=== PATIENT | male | born 1955 | race Caucasian/White ===

== ENCOUNTER 2016-07-21 21:40 | Emergency (ER) | payer OTHER ==
--- NOTE | 2016-07-21 23:42 | DIAGNOSTIC IMAGING REPORT ---
PROCEDURE: XR CHEST 2 VIEW INDICATION: FEVER TECHNIQUE: PA and lateral views. COMPARISON: None. FINDINGS: Allowing for suboptimal inspiration, there is mild volume loss at the left lung base. Lungs are otherwise clear. Heart and mediastinum are normal. Thorax is normal. IMPRESSION: 1. There is mild volume loss at the left lung base (may be a reflection of suboptimal inspiration). 2. Otherwise negative chest. 3. Findings discussed with Dr. Brent Schneider.
--- NOTE | 2016-07-21 23:44 | DIAGNOSTIC IMAGING REPORT ---
PROCEDURE: XR SOFT TISSUE NECK INDICATION: DIFFICULTY SWALLOWING TECHNIQUE: AP and lateral views. COMPARISON: None. FINDINGS: Findings suggest mild to moderate soft tissue edema of supraglottic structures with mild indistinctness of the laryngeal ventricle. Epiglottis is normal. Nasopharynx appears normal. There are mild to moderate degenerative changes of the lower cervical spine IMPRESSION: 1. Findings suggest mild to moderate soft tissue edema of the supraglottic structures. Consider supraglottitis. 2. Findings discussed with Dr. Brent Schneider.
--- NOTE | 2016-07-22 03:15 | ED NURSING NOTES ---
Clinical Report - Nurses [facility] [address] [place] [address] 07/21/2016 21:42 Patient: MELINA MANCILLA TRIAGE Triage time 21:51. Acuity: LEVEL 3. Chief Complaint: ABDOMINAL PAIN, NAUSEA and VOMITING. --21:59 Aaron Mabry R.N. 21:51 07/21/16. BP: 173/90. HR: 75. RR: 15. O2 saturation: 99%. Temp: 98.5 F. Pain level now 10/16. --21:59 Aaron Mabry R.N. Weight: 90.7 kg stated. Height/Length: 74 inches Per Patient. BMI: 25.7. --21:56 Aaron Mabry R.N. Medications Zofran Oral. --21:53 Aaron Mabry R.N. Medication/allergy information source: the patient. --21:59 Aaron Mabry R.N. Allergies No Known Drug Allergy. --21:53 Aaron Mabry R.N. History Arrived by private vehicle. Historian: patient. Accompanied by family. Primary physician (Lida Dhaliwal). ( Pt was seen a few days ago at the clinic for the same symptoms. Pt was suppose to have a CT done today, but missed the appt due to the far drive. Pt is having abdominal pain with n/v. Pt had a sore throat, but was negative for strep.). He has had nausea and vomiting. ( last bm was yesterday). 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 PAST MEDICAL HX: Immunizations: status is unknown. SOCIAL HX: Never smoker. No alcohol use or drug use. --21:59 Aaron Mabry R.N. PROBLEMS: Nephrolithiasis. Gallstone(s). Hypertension. --21:55 Aaron Mabry R.N. Interventions ID band on patient. To treatment room. --21:59 Aaron Mabry R.N. PHYSICAL ASSESSMENT ( Pt has been seen in the past for his abdomen. His pcp has ordered for a colonoscopy, but the pt never goes. Pt has n/v every day, per girlfriend.). GENERAL / NEURO / PSYCH: Alert. Oriented X 4. Appears in no acute distress. HEENT: Mucous membranes are pink. RESPIRATORY: Respirations not labored. Breath sounds within normal limits. CVS: Normal sinus rhythm noted. Capillary refill less than 2 seconds. GI / : The patient has had nausea. Emesis noted. ( last bm was yesterday). SKIN: Skin is warm and dry. --22:00 Aaron Mabry R.N. NURSING PROGRESS NOTES Pulse oximeter and NIBP monitor placed on patient. Patient gowned. Head of bed elevated. Two patient identifiers checked. Call light placed in reach. Side rails up x 1. Bed placed in lowest position. --22:00 Aaron Mabry R.N. 22:32. Flu swab obtained by psychiatric technician via nasal swab. Checked patient name and birthdate: patient confirmed. Throat swab obtained for rapid strep; labeled in the presence of the patient and sent to lab. --22:32 Eden Bethea, ER Tech1 22:33 07/21/2016 Site #1 started via IV in the right antecubital space with an 20g angiocath, with aseptic technique and good blood return; one attempt. Blood drawn: rainbow set. Labeled in the presence of the patient and sent to the lab. Saline lock flushed with 10 mL saline. --22:33 Aaron Mabry R.N. 22:34 07/21/2016 Zofran (Ondansetron HCl) IVP 4 mg given over 1 minute(s) via site #1. Allergies verified and confirmed 5 rights. IV patency established. IV site checked: no pain, redness, or swelling. IV flushed thoroughly pre- and post-medication administration. IVP given by RN. --22:34 Aaron Mabry R.N. 22:34 07/21/2016 Started bag #1 1000 mL IV Fluids IV NS (Saline); at 1000 mL/hr over 1 hour(s) via site #1 via IV pump. Allergies verified and confirmed 5 rights. IV patency established. IV site checked: no pain, redness, or swelling. IV flushed thoroughly pre- and post-medication administration. --22:34 Aaron Mabry R.N. 23:05 07/21/16. BP: 164/95. HR: 75. RR: 13. O2 saturation: 98%. Pain level now 0/10. --23:06 Aaron Mabry R.N. ( pt is laying in bed with a warm blanket and gf at bedside. Pt shows no signs of distress and has eyes closed.). --23:06 Aaron Mabry R.N. 23:54 07/21/2016 Started 2 gm of Rocephin (CefTRIAXone Sodium) IVPB; at 150 mL/hr over 30 minute(s) via site #1 via IV pump. Allergies verified and confirmed 5 rights. IV patency established. IV site checked: no pain, redness, or swelling. IV flushed thoroughly pre- and post-medication administration. --23:54 Aaron Mabry R.N. 23:54 07/21/2016 SOLU-MEDROL (MethylPREDNISolone Sodium Succ) IVP 125 mg given over 1 minute(s) via site #1. Allergies verified and confirmed 5 rights. IV patency established. IV site checked: no pain, redness, or swelling. IV flushed thoroughly pre- and post-medication administration. IVP given by RN. --23:54 Aaron Mabry R.N. 23:56 07/21/16. BP: 159/95. HR: 79. RR: 15. O2 saturation: 98%. Pain level now 0/10. --23:58 Aaron Mabry R.N. ( The gf was upset at the MD, because the pt would not answer questions. The pt stated his throat hurt, but was able to speak. Pt can speak in logical clear speech and has been negative for strep.). --23:58 Aaron Mabry R.N. 00:01 07/22/2016 Tylenol (Acetaminophen) PO 1000 mg given. Allergies verified and confirmed 5 rights. --00:01 Aaron Mabry R.N. 00:08 07/22/2016 Rocephin IVPB Discontinued: bag #1 infused. Total amount infused: 50 mL. IV patency established. IV site checked: no pain, redness, or swelling. IV flushed thoroughly. --00:08 Catherine Walsh R.N. 01:59 07/22/16. BP: 120/53. HR: 87. RR: 15. O2 saturation: 98%. Pain level now 0/10. --02:00 Aaron Mabry R.N. ( Pt is feeling better and is able to talk now. GF is at bedside. VS were retaken and improved.). --02:02 Aaron Mabry R.N. 01:56 07/22/2016 IV Fluids IV NS Discontinued: bag #1 completed. Total amount infused: 1000 mL. IV patency established. IV site checked: no pain, redness, or swelling. IV flushed thoroughly. --02:21 Aaron Mabry R.N. Patient transported to CT. (02:25). --02:25 Aaron Mabry R.N. Patient returned from CT. --02:47 Aaron Mabry R.N. DISPOSITION / DISCHARGE 03:30 07/22/2016 Site #1 removed upon discharge. Catheter intact. Bandaid applied. --03:30 Aaron Mabry R.N. Departure time: 03:31. Condition at departure: improved. No learning barriers present. Reviewed warnings. Reviewed medication(s). Treatments reviewed. Patient verbalized understanding. Written instructions provided in Monegasque. The patient was discharged by the physician. He was discharged home and accompanied by hand engraver. He left the Emergency Department ambulatory and via private vehicle. Substitute School Nurse driving. --03:32 Aaron Mabry R.N. 03:28 07/22/16. BP: 130/68. HR: 78. RR: 15. O2 saturation: 99%. Temp: 98.1 F. Pain level now 0/10. --03:32 Aaron Mabry R.N. Locked/Released at 07/22/2016 3:32 by Aaron Mabry R.N.
--- NOTE | 2016-07-22 03:15 | ED CLINICAL REPORT ---
Clinical Report - Physicians/Mid Levels [facility] [address] [place] [address] 07/21/2016 21:42 Patient: MELINA MANCILLA Time Seen: 21:49 Jul 21 2016. Arrived- By private vehicle. Historian- patient. Evaluation limited Pt does not participate and all questions answered by girlfriend. History limited by vague historian. Physical Exam limited by poor cooperation. CPT: ER phys charges level 4 (#[id number]). HISTORY OF PRESENT ILLNESS Chief Complaint: FEVER, CHILLS, SORE THROAT, COUGH, NAUSEA, VOMITING and ABDOMINAL PAIN Multiple complaints with no time frame . 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 He been seen earlier yesterday for the same complaint and had a strep screen done that was negative. He was told he had a viral illness. Since then his throat is becoming more sore and concerned him. In addition he states that he reported dark urine to the PCP and a UA showed some blood in the urine so a CT scan was set up. This was done because the patient has history of stones Patient notes abdominal pain nausea and vomiting. This is ongoing and chronic due to H. pylori. This is not the reason that he is here today but he reports 6-12 episodes of vomiting today with poor by mouth intake. indicates this is due to Zofran that he was prescribed that is not the sublingual. He is worried he may be dehydrated. and is still present. At its maximum, severity described as moderate. When seen in the E.D., severity described as moderate. Modifying factors- worsened by swallowing. Not relieved by anything. The patient has had fatigue and weakness. Similar symptoms previously: None. Recent medical care: The patient was seen recently at another facility in the office (yesterday). REVIEW OF SYSTEMS The patient has had fever, a sore throat, cough and headache and chills. No sinus drainage, nasal congestion, difficulty breathing, chest pain or diarrhea. No black stools, bloody stools, difficulty with urination, skin rash or back pain. No calf pain or blackouts. The patient has had abdominal pain (chronically). He has had nausea (chronically). He has had vomiting (chronically). All systems otherwise negative, except as recorded above. PAST HISTORY Nephrolithiasis. Gallstone(s). Hypertension. Medications: Zofran Oral. Allergies: No Known Drug Allergy. SOCIAL HISTORY Never smoker. No alcohol use or drug use. ADDITIONAL NOTES The nursing notes have been reviewed. PHYSICAL EXAM Vital Signs: 07/21/2016 21:51 BP: 173/90. HR: 75. RR: 15. O2 saturation: 99%. Temp: 98.5 F. Appearance: Alert. No acute distress. Eyes: Pupils equal, round and reactive to light. Eyes normal inspection. ENT: Ears normal. Nose normal. Pharynx normal. No pharyngeal erythema or tonsillar exudate. Neck: Normal inspection. Neck supple. No meningeal signs, carotid bruit or lymphadenopathy. CVS: Normal heart rate and rhythm. Heart sounds normal. Pulses normal. Respiratory: No respiratory distress. Respiratory distress (no stridor.). Breath sounds normal. Chest nontender. No wheezes. Abdomen: No visible injury. Soft and nontender. Back: Normal inspection. Skin: Skin warm. Normal skin color. No rash. Extremities: Extremities exhibit normal ROM. No lower extremity edema. Neuro: Oriented X 3. No motor deficit. No sensory deficit. LABS, X-RAYS, AND EKG Chest X-ray: (Left basilar atx vs small infiltrate.). Views: PA and lateral. Technique: good. The X-rays were independently viewed by me and interpreted contemporaneously by me. Laboratory Tests: CBC w Diff: (KAI: 07/21/2016 22:30) ( MsgRcvd 07/21/2016 23:02) Final results Test Result Flag Units (Reference) WHITE BLOOD COUNT 12.2 H K/uL (4.5-11.5) RED BLOOD COUNT 5.13 M/uL (4.50-5.90) HEMOGLOBIN 15.4 gm/dL (13.5-17.5) HEMATOCRIT 45.1 % (41.0-53.0) MEAN CELL VOLUME 88 fL (80-100) MEAN CORPUSCULAR HGB 30 pg (26-34) MEAN CORPUSCULAR HGB CONC 34 g/dL (31-37) RED CELL DISTRIBUTION WIDTH 13.7 % (11.6-14.8) PLATELET COUNT 187 K/uL (150-400) NEUTROPHIL % 92.3 H % (50-75) LYMPH % 3.1 L % (25-40) MONO % 4.4 % (3-14) EOSINOPHIL % 0 % (0-4) BASOPHIL % 0.2 % (0-2) [id number]: (KAI: 07/21/2016 22:30) ( MsgRcvd 07/21/2016 23:28) Final results Test Result Flag Units (Reference) PROCALCITONIN <0.5 ng/mL (0-0.5) PCT Concentration: Interpretation : Risk/option for action PCT <=0.5 ng/mL : Systemic : Low risk forinfection(sepsis): progression to severeis not likely. : systemic infection.Local bacterial : CAUTION-PCT levelsinfection is : below 0.5 ng/mL do notpossible. : exclude an infection,because localizedinfections (withoutsystemic signs) may beassociated with suchlow levels. If PCT ismeasured very earlyafter a bacterialchallenge (usually <6hours), these valuesmay still be low. Inthis case PCT shouldbe re-assessed 6-24hours later. PCT >0.5 and : Systemic infection: Moderate risk for<= 2 ng/mL : (sepsis) is : progression to severepossible, but : systemic infection.other conditions : The patient should beare known to : closely monitoredelevate PCT. : both clinically andby re-assessing PCTwithin 6-24 hours. PCT > 2 ng/mL : Systemic infection: High risk for(sepsis) is likely: progression to severeunless other : systemic infection.causes are known. : PCT >= 10 ng/mL : Important systemic: High likelihood ofinflammatory : severe sepsis orresponse, almost : septic shock.exclusively due to:severe bacterial :sepsis or septic :shock. : CMP: (KAI: 07/21/2016 22:30) ( MsgRcvd 07/21/2016 23:20) Final results Test Result Flag Units (Reference) GLUCOSE 121 H mg/dL (70-110) BUN 10 mg/dL (7-18) CREATININE 1.2 mg/dL (0.6-1.3) Estimated GFR >60 mL/min Estimated GFR- >60 mL/min Note: Persistent reduction over 3 months in eGFR<60 mL/min/1.73 m2 defines CKD. Patients with eGFR values>=60 mL/min/1.73 m2 may also have CKD if evidence ofpersistent proteinuria. Additional information may be foundat www.kidney.org. SODIUM 141 mmol/L (136-145) POTASSIUM 3.9 mmol/L (3.5-5.1) CHLORIDE 103 mmol/L (98-107) CARBON DIOXIDE 28 mmol/L (21-32) CALCIUM 8.6 mg/dL (8.5-10.1) TOTAL PROTEIN 7.0 g/dL (6.4-8.2) ALBUMIN 3.4 g/dL (3.3-5.0) BILIRUBIN, TOTAL 1.0 mg/dL (0.0-1.0) ALKALINE PHOSPHATASE 139 H U/L (46-116) AST (SGOT) 45 H U/L (15-37) ALT (SGPT) 64 U/L (12-78) Culture, Strep Screen: (KAI: 07/21/2016 22:22) ( MsgRcvd 07/21/2016 22:51) Final results Test Result Flag Units (Reference) RAPID STREP SCREEN - THROAT DATE: 07/21/16 NEGATIVE SCREEN: RAPID STREP SCREEN NEGATIVE; CONFIRMATION TO FOLLOW Rapid Influenza Screen: (KAI: 07/21/2016 22:22) ( MsgRcvd 07/21/2016 22:53) Final results SPECIMEN DESCRIPTION: SWAB Test Result Flag Units (Reference) RAPID INFLUENZA SCREEN DATE: 07/21/16 INFLUENZA A: NEGATIVE SCREEN FOR INFLUENZA A INFLUENZA B: NEGATIVE SCREEN FOR INFLUENZA B . Note - Tests: (CT soft tissue neck: Mild inflammation at base of epiglottis.). PROGRESS AND PROCEDURES Course of Care: IV NS Rocephin 2g IV Solumedrol 125 mg IV Zofrn 4 mg IV Patient is stable. Symptoms better. Patient/family counseled. Disposition: Discharged. Condition: stable and improved. CLINICAL IMPRESSION Acute pharyngitis. INSTRUCTIONS Warnings: Further evaluation is necessary. GENERAL WARNINGS: Return or contact your physician immediately if your condition worsens or changes unexpectedly, if not improving as expected, or if other problems arise. Your Current Medications: CONTINUE TAKING THE FOLLOWING MEDICATIONS: Zofran Oral. Prescription Medications: Zofran (orally disintegrating tablets) 4 mg: take 1 orally every 6 hours as needed for nausea. Dispense fifteen (15). No refill. Hydrocodone/APAP 5mg/325mg: take 1 to 2 orally every 6 hours as needed for pain. Dispense fifteen (15). No refills. Ceftin 500 mg: take 1 tab orally every 12 hours for 10 days. No refills. Substitution is permissible. Prednisone 50 mg a day po for 3 days. Follow-up: Follow up with your doctor in two days. Call for an appointment. Understanding of the discharge instructions verbalized by patient. Discharge instructions reviewed with and understanding was verbalized by occupational therapy co director. (Electronically signed by Brent Schneider MD 07/22/2016 8:40)
--- NOTE | 2016-07-22 03:15 | ED ORDER SUMMARY ---
..... Patient: MELINA MANCILLA OrderSheet [facility] VisitID: [id number] [address] [place] [address] 61y, M Registration Date/Time: 07/21/2016 ORDER SHEET Weight: 90.7 kg (stated) Allergies: No Known Drug Allergy GENERAL ORDERS: Soft Tissue Neck Urgent (22:22 07/21/2016 Art DELGADO) (Ack 22:25 AMcQuoid ER Tech1) (22:49 RFay) Chest 2V Urgent (22:22 07/21/2016 Art DELGADO) (Ack 22:25 AMcQuoid ER Tech1) (22:49 RFay) CBC w Diff Urgent (22:22 07/21/2016 Art DELGADO) (Ack 22:25 AMcQuoid ER Tech1) (22:33 TLewis R.N.) CMP Urgent (22:22 07/21/2016 Art DELGADO) (Ack 22:25 AMcQuoid ER Tech1) (22:33 TLewis R.N.) PCT (Procalcitonin) Urgent (22:22 07/21/2016 Art DELGADO) (Ack 22:25 AMcQuoid ER Tech1) (22:33 TLewis R.N.) Rapid Influenza Screen (Nasal Pharyngeal) (swab) Urgent (22:23 07/21/2016 Art DELGADO) (Ack 22:25 AMcQuoid ER Tech1) (22:32 AMcQuoid ER Tech1) Culture, Strep Screen Urgent (22:23 07/21/2016 Art DELGADO) (Ack 22:25 AMcQuoid ER Tech1) (22:32 AMcQuoid ER Tech1) UA-Culture if indicated Urgent (23:43 07/21/2016 Art DELGADO) (23:46 AMcQuoid ER Tech1) CT Soft Tissue Neck w Cont (No) (N/A) Urgent (02:19 07/22/2016 Art DELGADO) (2:21 TLewis R.N.) MEDICATION ORDERS: Tylenol PO 1,000 mg (NOW) (23:57 07/21/2016 Art DELGADO) (0:01 TLewis R.N.) IV FLUIDS: IV NS : initial bolus 1000 mL (1000 mL/hr), then none - for X1 (NOW); Routine (22:22 07/21/2016 Art DELGADO) (22:34 Josias CostaNNicole) Zofran IV 4 mg (NOW) (22:22 07/21/2016 Art DELGADO) (22:34 Josias CostaN.) Solu-MEDROL IV 125 mg (NOW) (23:44 07/21/2016 Art DELGADO) (23:54 Josias R.N.) Rocephin IV 2 gm/50mL (NOW) (23:44 07/21/2016 Art DELGADO) (23:54 Josias R.N.) ORDER SHEET NOTES: [Electronically signed by Aaron Mabry R.N. (03:32 07/22/2016)] [Electronically signed by Brent Schneider MD (08:40 07/22/2016)] [Electronically locked/signed by Aaron Mabry R.N. (03:32 07/22/2016)]
--- NOTE | 2016-07-22 03:15 | ED ORDER SUMMARY ---
..... Patient: MELINA MANCILLA OrderSheet [facility] VisitID: [id number] [address] [place] [address] 61y, M Registration Date/Time: 07/21/2016 ORDER SHEET Weight: 90.7 kg (stated) Allergies: No Known Drug Allergy GENERAL ORDERS: Soft Tissue Neck Urgent (22:22 07/21/2016 Art DELGADO) (Ack 22:25 AMcQuoid ER Tech1) (22:49 RFay) Chest 2V Urgent (22:22 07/21/2016 Art DELGADO) (Ack 22:25 AMcQuoid ER Tech1) (22:49 RFay) CBC w Diff Urgent (22:22 07/21/2016 Art DELGADO) (Ack 22:25 AMcQuoid ER Tech1) (22:33 TLewis R.N.) CMP Urgent (22:22 07/21/2016 Art DELGADO) (Ack 22:25 AMcQuoid ER Tech1) (22:33 TLewis R.N.) PCT (Procalcitonin) Urgent (22:22 07/21/2016 Art DELGADO) (Ack 22:25 AMcQuoid ER Tech1) (22:33 TLewis R.N.) Rapid Influenza Screen (Nasal Pharyngeal) (swab) Urgent (22:23 07/21/2016 Art DELGADO) (Ack 22:25 AMcQuoid ER Tech1) (22:32 AMcQuoid ER Tech1) Culture, Strep Screen Urgent (22:23 07/21/2016 Art DELGADO) (Ack 22:25 AMcQuoid ER Tech1) (22:32 AMcQuoid ER Tech1) UA-Culture if indicated Urgent (23:43 07/21/2016 Art DELGADO) (23:46 AMcQuoid ER Tech1) CT Soft Tissue Neck w Cont (No) (N/A) Urgent (02:19 07/22/2016 Art DELGADO) (2:21 TLewis R.N.) MEDICATION ORDERS: Tylenol PO 1,000 mg (NOW) (23:57 07/21/2016 Art DELGADO) (0:01 TLewis R.N.) IV FLUIDS: IV NS : initial bolus 1000 mL (1000 mL/hr), then none - for X1 (NOW); Routine (22:22 07/21/2016 Art DELGADO) (22:34 Josias CostaNNicole) Zofran IV 4 mg (NOW) (22:22 07/21/2016 Art DELGADO) (22:34 oJsias CostaN.) Solu-MEDROL IV 125 mg (NOW) (23:44 07/21/2016 Art DEGLADO) (23:54 Josias R.N.) Rocephin IV 2 gm/50mL (NOW) (23:44 07/21/2016 Art DELGADO) (23:54 Josias R.N.) ORDER SHEET NOTES: [Electronically signed by Aaron Mabry R.N. (03:32 07/22/2016)] [Electronically signed by Brent Schneider MD (08:40 07/22/2016)] [Electronically locked/signed by Aaron Mabry R.N. (03:32 07/22/2016)]
--- NOTE | 2016-07-22 03:15 | ED NURSING NOTES ---
Clinical Report - Nurses [facility] [address] [place] [address] 07/21/2016 21:42 Patient: MELINA MANCILLA TRIAGE Triage time 21:51. Acuity: LEVEL 3. Chief Complaint: ABDOMINAL PAIN, NAUSEA and VOMITING. --21:59 Aaron Mabry R.N. 21:51 07/21/16. BP: 173/90. HR: 75. RR: 15. O2 saturation: 99%. Temp: 98.5 F. Pain level now 10/16. --21:59 Aaron Mabry R.N. Weight: 90.7 kg stated. Height/Length: 74 inches Per Patient. BMI: 25.7. --21:56 Aaron Mabry R.N. Medications Zofran Oral. --21:53 Aaron Mabry R.N. Medication/allergy information source: the patient. --21:59 Aaron Mabry R.N. Allergies No Known Drug Allergy. --21:53 Aaron Mabry R.N. History Arrived by private vehicle. Historian: patient. Accompanied by family. Primary physician (Lida Dhaliwal). ( Pt was seen a few days ago at the clinic for the same symptoms. Pt was suppose to have a CT done today, but missed the appt due to the far drive. Pt is having abdominal pain with n/v. Pt had a sore throat, but was negative for strep.). He has had nausea and vomiting. ( last bm was yesterday). Treatment NUTRITION TECH: None. PAST MEDICAL HX: Immunizations: status is unknown. SOCIAL HX: Never smoker. No alcohol use or drug use. --21:59 Aaron Mabry R.N. PROBLEMS: Nephrolithiasis. Gallstone(s). Hypertension. --21:55 Aaron Mabry R.N. Interventions ID band on patient. To treatment room. --21:59 Aaron Mabry R.N. PHYSICAL ASSESSMENT ( Pt has been seen in the past for his abdomen. His pcp has ordered for a colonoscopy, but the pt never goes. Pt has n/v every day, per girlfriend.). GENERAL / NEURO / PSYCH: Alert. Oriented X 4. Appears in no acute distress. HEENT: Mucous membranes are pink. RESPIRATORY: Respirations not labored. Breath sounds within normal limits. CVS: Normal sinus rhythm noted. Capillary refill less than 2 seconds. GI / : The patient has had nausea. Emesis noted. ( last bm was yesterday). SKIN: Skin is warm and dry. --22:00 Aaron Mabry R.N. NURSING PROGRESS NOTES Pulse oximeter and NIBP monitor placed on patient. Patient gowned. Head of bed elevated. Two patient identifiers checked. Call light placed in reach. Side rails up x 1. Bed placed in lowest position. --22:00 Aaron Mabry R.N. 22:32. Flu swab obtained by biochemistry technician via nasal swab. Checked patient name and birthdate: patient confirmed. Throat swab obtained for rapid strep; labeled in the presence of the patient and sent to lab. --22:32 Eden Bethea, ER Tech1 22:33 07/21/2016 Site #1 started via IV in the right antecubital space with an 20g angiocath, with aseptic technique and good blood return; one attempt. Blood drawn: rainbow set. Labeled in the presence of the patient and sent to the lab. Saline lock flushed with 10 mL saline. --22:33 Aaron Mabry R.N. 22:34 07/21/2016 Zofran (Ondansetron HCl) IVP 4 mg given over 1 minute(s) via site #1. Allergies verified and confirmed 5 rights. IV patency established. IV site checked: no pain, redness, or swelling. IV flushed thoroughly pre- and post-medication administration. IVP given by RN. --22:34 Aaron Mabry R.N. 22:34 07/21/2016 Started bag #1 1000 mL IV Fluids IV NS (Saline); at 1000 mL/hr over 1 hour(s) via site #1 via IV pump. Allergies verified and confirmed 5 rights. IV patency established. IV site checked: no pain, redness, or swelling. IV flushed thoroughly pre- and post-medication administration. --22:34 Aaron Mabry R.N. 23:05 07/21/16. BP: 164/95. HR: 75. RR: 13. O2 saturation: 98%. Pain level now 0/10. --23:06 Aaron Mabry R.N. ( pt is laying in bed with a warm blanket and gf at bedside. Pt shows no signs of distress and has eyes closed.). --23:06 Aaron Mabry R.N. 23:54 07/21/2016 Started 2 gm of Rocephin (CefTRIAXone Sodium) IVPB; at 150 mL/hr over 30 minute(s) via site #1 via IV pump. Allergies verified and confirmed 5 rights. IV patency established. IV site checked: no pain, redness, or swelling. IV flushed thoroughly pre- and post-medication administration. --23:54 Aaron Mabry R.N. 23:54 07/21/2016 SOLU-MEDROL (MethylPREDNISolone Sodium Succ) IVP 125 mg given over 1 minute(s) via site #1. Allergies verified and confirmed 5 rights. IV patency established. IV site checked: no pain, redness, or swelling. IV flushed thoroughly pre- and post-medication administration. IVP given by RN. --23:54 Aaron Mabry R.N. 23:56 07/21/16. BP: 159/95. HR: 79. RR: 15. O2 saturation: 98%. Pain level now 0/10. --23:58 Aaron Mabry R.N. ( The gf was upset at the MD, because the pt would not answer questions. The pt stated his throat hurt, but was able to speak. Pt can speak in logical clear speech and has been negative for strep.). --23:58 Aaron Mabry R.N. 00:01 07/22/2016 Tylenol (Acetaminophen) PO 1000 mg given. Allergies verified and confirmed 5 rights. --00:01 Aaron Mabry R.N. 00:08 07/22/2016 Rocephin IVPB Discontinued: bag #1 infused. Total amount infused: 50 mL. IV patency established. IV site checked: no pain, redness, or swelling. IV flushed thoroughly. --00:08 Catherine Walsh R.N. 01:59 07/22/16. BP: 120/53. HR: 87. RR: 15. O2 saturation: 98%. Pain level now 0/10. --02:00 Aaron Mabry R.N. ( Pt is feeling better and is able to talk now. GF is at bedside. VS were retaken and improved.). --02:02 Aaron Mabry R.N. 01:56 07/22/2016 IV Fluids IV NS Discontinued: bag #1 completed. Total amount infused: 1000 mL. IV patency established. IV site checked: no pain, redness, or swelling. IV flushed thoroughly. --02:21 Aaron Mabry R.N. Patient transported to CT. (02:25). --02:25 Aaron Mabry R.N. Patient returned from CT. --02:47 Aaron Mabry R.N. DISPOSITION / DISCHARGE 03:30 07/22/2016 Site #1 removed upon discharge. Catheter intact. Bandaid applied. --03:30 Aaron Mabry R.N. Departure time: 03:31. Condition at departure: improved. No learning barriers present. Reviewed warnings. Reviewed medication(s). Treatments reviewed. Patient verbalized understanding. Written instructions provided in Swazi. The patient was discharged by the physician. He was discharged home and accompanied by roofing supervisor. He left the Emergency Department ambulatory and via private vehicle. Help Desk Agent driving. --03:32 Aaron Mabry R.N. 03:28 07/22/16. BP: 130/68. HR: 78. RR: 15. O2 saturation: 99%. Temp: 98.1 F. Pain level now 0/10. --03:32 Aaron Mabry R.N. Locked/Released at 07/22/2016 3:32 by Aaron Mabry R.N.
--- NOTE | 2016-07-22 07:21 | DIAGNOSTIC IMAGING REPORT ---
PROCEDURE: CT SOFT TISSUE NECK WITH CONT INDICATION: Sore throat, initial encounter TECHNIQUE: 95 ml of Isovue 300 injected intravenously and axial images were obtained from the skull base through the upper mediastinum with sagittal and coronal reformations. In addition, angled axial oblique images were obtained ( avoiding dental hardware). COMPARISON: None. FINDINGS: There is symmetric prominence of the aryepiglottic folds. Normal nasopharynx and oropharynx. Normal epiglottis. Small nonspecific lymph nodes. The parotid and submandibular glands are normal. 1 cm left thyroid nodule. Degenerative changes of the spine. IMPRESSION: 1. Prominence of the aryepiglottic fold suggestive of supraglottitis 2. Left thyroid nodule 3. Preliminary results by Dr. Flowers, [facility] radiology All CT scans at this facility use dose modulation, iterative reconstruction, and/or weight-based dosing when appropriate to reduce radiation dose to as low as reasonably achievable.
--- NOTE | 2016-07-22 07:21 | DIAGNOSTIC IMAGING REPORT ---
PROCEDURE: CT SOFT TISSUE NECK WITH CONT INDICATION: Sore throat, initial encounter TECHNIQUE: 95 ml of Isovue 300 injected intravenously and axial images were obtained from the skull base through the upper mediastinum with sagittal and coronal reformations. In addition, angled axial oblique images were obtained ( avoiding dental hardware). COMPARISON: None. FINDINGS: There is symmetric prominence of the aryepiglottic folds. Normal nasopharynx and oropharynx. Normal epiglottis. Small nonspecific lymph nodes. The parotid and submandibular glands are normal. 1 cm left thyroid nodule. Degenerative changes of the spine. IMPRESSION: 1. Prominence of the aryepiglottic fold suggestive of supraglottitis 2. Left thyroid nodule 3. Preliminary results by Dr. Flowers, [facility] radiology All CT scans at this facility use dose modulation, iterative reconstruction, and/or weight-based dosing when appropriate to reduce radiation dose to as low as reasonably achievable.
--- NOTE | 2016-07-22 08:40 | ED MAR SUMMARY ---
..... Medication Administration Record [facility] [address] [place] [address] Patient: MELINA MANCILLA Visit ID: [id number] 61y, M Weight: 90.7 kg Height/Length: 74 in BMI: 25.7 ALLERGIES: No Known Drug Allergy Start 22:34 07/21/2016 Aaron Mabry R.N., Stop 01:56 07/22/2016 Aaron Mabry R.N. Medication Administered: IV NS (SALINE), Dose: IV Fluids over 1 hour(s), Rate: 1000 mL/hr, Dispensed: 1000 mL bag, Site: #1 right AC. Medication Ordered: IV NS : initial bolus 1000 mL (1000 mL/hr), then none - for X1 (NOW); Routine. Given 22:34 07/21/2016 Aaron Mabry R.N. Medication Administered: ZOFRAN [IVP] (ONDANSETRON HCL), Dose: 4 mg IVP over 1 minute(s), Site: #1 right AC. Medication Ordered: Zofran IV 4 mg (NOW). Given 23:54 07/21/2016 Aaron Mabry R.N. Medication Administered: SOLU-MEDROL [IVP] (METHYLPREDNISOLONE SODIUM SUCC), Dose: 125 mg IVP over 1 minute(s), Site: #1 right AC. Medication Ordered: Solu-MEDROL IV 125 mg (NOW). Start 23:54 07/21/2016 Aaron Mabry R.N., Stop 00:08 07/22/2016 Catherine Walsh R.N. Medication Administered: ROCEPHIN [IVPB] (CEFTRIAXONE SODIUM), Dose: 2 gm IVPB over 30 minute(s), Rate: 150 mL/hr, Site: #1 right AC. Medication Ordered: Rocephin IV 2 gm/50mL (NOW). Given 00:01 07/22/2016 Aaron Mabry R.N. Medication Administered: TYLENOL [PO] (ACETAMINOPHEN), Dose: 1000 mg PO. Medication Ordered: Tylenol PO 1,000 mg (NOW).
--- NOTE | 2016-07-22 08:40 | ED DISCHARGE INSTRUCTIONS ---
Patient: MELINA MANCILLA General Instructions [facility] VisitID: [id number] [place] [address] 61y, M Registration Date/Time: 07/21/2016 Acute pharyngitis. INSTRUCTIONS Warnings: Further evaluation is necessary. GENERAL WARNINGS: Return or contact your physician immediately if your condition worsens or changes unexpectedly, if not improving as expected, or if other problems arise. Your Current Medications: CONTINUE TAKING THE FOLLOWING MEDICATIONS: Zofran Oral. Prescription Medications: Zofran (orally disintegrating tablets) 4 mg: take 1 orally every 6 hours as needed for nausea. Dispense fifteen (15). No refill. Hydrocodone/APAP 5mg/325mg: take 1 to 2 orally every 6 hours as needed for pain. Dispense fifteen (15). No refills. Ceftin 500 mg: take 1 tab orally every 12 hours for 10 days. No refills. Substitution is permissible. Prednisone 50 mg a day po for 3 days. Follow-up: Follow up with your doctor in two days. Call for an appointment. Understanding of the discharge instructions verbalized by patient. Discharge instructions reviewed with and understanding was verbalized by orchardist. ADDITIONAL INFORMATION Ondansetron Oral disintegrating tablet What is this medicine? ONDANSETRON (on DRAKE se duke) is used to treat nausea and vomiting caused by chemotherapy. It is also used to prevent or treat nausea and vomiting after surgery. How should I use this medicine? These tablets are made to dissolve in the mouth. Do not try to push the tablet through the foil backing. With dry hands, peel away the foil backing and gently remove the tablet. Place the tablet in the mouth and allow it to dissolve, then swallow. While you may take these tablets with water, it is not necessary to do so. Talk to your country director regarding the use of this medicine in children. Special care may be needed. What side effects may I notice from receiving this medicine? Side effects that you should report to your doctor or health hospice home care coordinator as soon as possible: allergic reactions like skin rash, itching or hives, swelling of the face, lips, or tongue breathing problems dizziness fast or irregular heartbeat feeling faint or lightheaded, falls fever and chills swelling of the hands and feet tightness in the chest Side effects that usually do not require medical attention (report to your doctor or health hospice home care coordinator if they continue or are bothersome): constipation or diarrhea headache What may interact with this medicine? Do not take this medicine with any of the following medications: -apomorphine -cisapride -dofetilide -dronedarone -pimozide -thioridazine -ziprasidone This medicine may also interact with the following medications: -carbamazepine -phenytoin -rifampicin -tramadol -other medicines that prolong the QT interval (cause an abnormal heart rhythm) What if I miss a dose? If you miss a dose, take it as soon as you can. If it is almost time for your next dose, take only that dose. Do not take double or extra doses. Where should I keep my medicine? Keep out of the reach of children. Store between 2 and 30 degrees C (36 and 86 degrees F). Throw away any unused medicine after the expiration date. What should I tell my health care provider before I take this medicine? They need to know if you have any of these conditions: heart disease history of irregular heartbeat liver disease low levels of magnesium or potassium in the blood an unusual or allergic reaction to ondansetron, granisetron, other medicines, foods, dyes, or preservatives or trying to get breast-feeding What should I watch for while using this medicine? Check with your doctor or health hospice home care coordinator as soon as you can if you have any sign of an allergic reaction. You have been given the following additional information: Ondansetron Oral disintegrating tablet (Electronically signed by Brent Schneider MD 07/22/2016 8:40)
--- NOTE | 2016-07-22 08:40 | ED MED RECONCILIATION SUMMARY ---
Patient: MELINA MANCILLA Medication Reconciliation Report [facility] VisitID: [id number] [address] [place] [address] 61y, M Registration Date/Time: 07/21/2016 Weight: 90.7 kg Height/Length: 74 in. BMI: 25.7 ALLERGIES: No Known Drug Allergy The patient's Home Medications are listed below: CONTINUE TAKING THE FOLLOWING MEDICATIONS: Zofran Oral The source(s) of the original Home Medication information: patient The following Medications were given to the patient in the Emergency Department: Zofran [IVP] IVP 4 mg, administered: 07/21/2016 10:34:00 PM IV NS IV Fluids bolus 0, then 1000 mL/hr, administered: 07/21/2016 10:34:00 PM Rocephin [IVPB] IVPB bolus 0, then 2 gm 150 mL/hr, administered: 07/21/2016 11:54:00 PM SOLU-MEDROL [IVP] IVP 125 mg, administered: 07/21/2016 11:54:00 PM Tylenol [PO] PO 1000 mg, administered: 07/22/2016 12:01:00 AM The following Medications were prescribed to the patient: Zofran (orally disintegrating tablets) 4 mg: take 1 orally every 6 hours as needed for nausea. Dispense fifteen (15). No refill. -- Brent Schneider MD Prednisone 50 mg a day po for 3 days. -- Brent Schneider MD Hydrocodone/APAP 5mg/325mg: take 1 to 2 orally every 6 hours as needed for pain. Dispense fifteen (15). No refills. -- Brent Schneider MD Ceftin 500 mg: take 1 tab orally every 12 hours for 10 days. No refills. Substitution is permissible. -- Brent Schneider MD
--- NOTE | 2016-07-22 08:40 | ED DISCHARGE INSTRUCTIONS ---
Patient: MELINA MANCILLA General Instructions [facility] VisitID: [id number] [place] [address] 61y, M Registration Date/Time: 07/21/2016 Acute pharyngitis. INSTRUCTIONS Warnings: Further evaluation is necessary. GENERAL WARNINGS: Return or contact your physician immediately if your condition worsens or changes unexpectedly, if not improving as expected, or if other problems arise. Your Current Medications: CONTINUE TAKING THE FOLLOWING MEDICATIONS: Zofran Oral. Prescription Medications: Zofran (orally disintegrating tablets) 4 mg: take 1 orally every 6 hours as needed for nausea. Dispense fifteen (15). No refill. Hydrocodone/APAP 5mg/325mg: take 1 to 2 orally every 6 hours as needed for pain. Dispense fifteen (15). No refills. Ceftin 500 mg: take 1 tab orally every 12 hours for 10 days. No refills. Substitution is permissible. Prednisone 50 mg a day po for 3 days. Follow-up: Follow up with your doctor in two days. Call for an appointment. Understanding of the discharge instructions verbalized by patient. Discharge instructions reviewed with and understanding was verbalized by obstetrician gynecologist. ADDITIONAL INFORMATION Ondansetron Oral disintegrating tablet What is this medicine? ONDANSETRON (on DRAKE se duke) is used to treat nausea and vomiting caused by chemotherapy. It is also used to prevent or treat nausea and vomiting after surgery. How should I use this medicine? These tablets are made to dissolve in the mouth. Do not try to push the tablet through the foil backing. With dry hands, peel away the foil backing and gently remove the tablet. Place the tablet in the mouth and allow it to dissolve, then swallow. While you may take these tablets with water, it is not necessary to do so. Talk to your shade cutter regarding the use of this medicine in children. Special care may be needed. What side effects may I notice from receiving this medicine? Side effects that you should report to your doctor or health home care administrator as soon as possible: allergic reactions like skin rash, itching or hives, swelling of the face, lips, or tongue breathing problems dizziness fast or irregular heartbeat feeling faint or lightheaded, falls fever and chills swelling of the hands and feet tightness in the chest Side effects that usually do not require medical attention (report to your doctor or health home care administrator if they continue or are bothersome): constipation or diarrhea headache What may interact with this medicine? Do not take this medicine with any of the following medications: -apomorphine -cisapride -dofetilide -dronedarone -pimozide -thioridazine -ziprasidone This medicine may also interact with the following medications: -carbamazepine -phenytoin -rifampicin -tramadol -other medicines that prolong the QT interval (cause an abnormal heart rhythm) What if I miss a dose? If you miss a dose, take it as soon as you can. If it is almost time for your next dose, take only that dose. Do not take double or extra doses. Where should I keep my medicine? Keep out of the reach of children. Store between 2 and 30 degrees C (36 and 86 degrees F). Throw away any unused medicine after the expiration date. What should I tell my health care provider before I take this medicine? They need to know if you have any of these conditions: heart disease history of irregular heartbeat liver disease low levels of magnesium or potassium in the blood an unusual or allergic reaction to ondansetron, granisetron, other medicines, foods, dyes, or preservatives or trying to get breast-feeding What should I watch for while using this medicine? Check with your doctor or health home care administrator as soon as you can if you have any sign of an allergic reaction. You have been given the following additional information: Ondansetron Oral disintegrating tablet (Electronically signed by Brent Schneider MD 07/22/2016 8:40)
--- NOTE | 2016-07-22 08:40 | ED MED RECONCILIATION SUMMARY ---
Patient: MELINA MANCILLA Medication Reconciliation Report [facility] VisitID: [id number] [address] [place] [address] 61y, M Registration Date/Time: 07/21/2016 Weight: 90.7 kg Height/Length: 74 in. BMI: 25.7 ALLERGIES: No Known Drug Allergy The patient's Home Medications are listed below: CONTINUE TAKING THE FOLLOWING MEDICATIONS: Zofran Oral The source(s) of the original Home Medication information: patient The following Medications were given to the patient in the Emergency Department: Zofran [IVP] IVP 4 mg, administered: 07/21/2016 10:34:00 PM IV NS IV Fluids bolus 0, then 1000 mL/hr, administered: 07/21/2016 10:34:00 PM Rocephin [IVPB] IVPB bolus 0, then 2 gm 150 mL/hr, administered: 07/21/2016 11:54:00 PM SOLU-MEDROL [IVP] IVP 125 mg, administered: 07/21/2016 11:54:00 PM Tylenol [PO] PO 1000 mg, administered: 07/22/2016 12:01:00 AM The following Medications were prescribed to the patient: Zofran (orally disintegrating tablets) 4 mg: take 1 orally every 6 hours as needed for nausea. Dispense fifteen (15). No refill. -- Brent Schneider MD Prednisone 50 mg a day po for 3 days. -- Brent Schneider MD Hydrocodone/APAP 5mg/325mg: take 1 to 2 orally every 6 hours as needed for pain. Dispense fifteen (15). No refills. -- Brent Schneider MD Ceftin 500 mg: take 1 tab orally every 12 hours for 10 days. No refills. Substitution is permissible. -- Brent Schneider MD
--- NOTE | 2016-07-22 08:40 | ED MAR SUMMARY ---
..... Medication Administration Record [facility] [address] [place] [address] Patient: MELINA MANCILLA Visit ID: [id number] 61y, M Weight: 90.7 kg Height/Length: 74 in BMI: 25.7 ALLERGIES: No Known Drug Allergy Start 22:34 07/21/2016 Aaron Mabry R.N., Stop 01:56 07/22/2016 Aaron Mabry R.N. Medication Administered: IV NS (SALINE), Dose: IV Fluids over 1 hour(s), Rate: 1000 mL/hr, Dispensed: 1000 mL bag, Site: #1 right AC. Medication Ordered: IV NS : initial bolus 1000 mL (1000 mL/hr), then none - for X1 (NOW); Routine. Given 22:34 07/21/2016 Aaron Mabry R.N. Medication Administered: ZOFRAN [IVP] (ONDANSETRON HCL), Dose: 4 mg IVP over 1 minute(s), Site: #1 right AC. Medication Ordered: Zofran IV 4 mg (NOW). Given 23:54 07/21/2016 Aaron Mabry R.N. Medication Administered: SOLU-MEDROL [IVP] (METHYLPREDNISOLONE SODIUM SUCC), Dose: 125 mg IVP over 1 minute(s), Site: #1 right AC. Medication Ordered: Solu-MEDROL IV 125 mg (NOW). Start 23:54 07/21/2016 Aaron Mabry R.N., Stop 00:08 07/22/2016 Catherine Walsh R.N. Medication Administered: ROCEPHIN [IVPB] (CEFTRIAXONE SODIUM), Dose: 2 gm IVPB over 30 minute(s), Rate: 150 mL/hr, Site: #1 right AC. Medication Ordered: Rocephin IV 2 gm/50mL (NOW). Given 00:01 07/22/2016 Aaron Mabry R.N. Medication Administered: TYLENOL [PO] (ACETAMINOPHEN), Dose: 1000 mg PO. Medication Ordered: Tylenol PO 1,000 mg (NOW).
== END 2016-07-22 03:30 | disposition home or self-care (01) ==
LOC: ED SRH 21:40
DX: J02.9 Acute pharyngitis, unspecified (principal); R11.2 Nausea with vomiting, unspecified; R10.9 Unspecified abdominal pain; Z87.442 Personal history of urinary calculi; I10 Essential (primary) hypertension
CPT/HCPCS: 90004; 90100; 90154; 90159; 91400; 93004; 95059